=== PATIENT | male | born 1965 | race Caucasian/White ===

== ENCOUNTER → 2021-01-26 00:01 | Outpatient (BNVA) | payer OTHER, SELFPAY | PROVIDERS: Family Provider Nurse Practitioner Family; PCP Nurse Practitioner Family; Visit Provider Nurse Practitioner Family | DX: M77.8 Other enthesopathies, not elsewhere classified (principal) | CPT/HCPCS: 73080 ==

== ENCOUNTER 2023-01-16 10:14 | Emergency (ER) | payer OTHER, SELFPAY ==
[2023-01-16 10:22] VITALS: BP 163/89; PULSE 76; TEMP 36.4; O2SAT 99; BMI 31.1
--- NOTE | 2023-01-16 11:38 | ED_ITS ---
HPI - Back Pain/Injury General: Chief Complaint: Back Pain/Injury Stated Complaint: back pain Time Seen by Provider: 01/16/23 11:02 History of Present Illness: Mr. Whittaker is a 57-year-old gentleman presenting to the emergency department for back injury. He reports onset of symptoms 4 days ago when he had a garage door fall on his lower back. He immediately had pain which is progressively worsened with pain radiation to the left foot. Worse with ambulation and movement. He has tried home medications without significant relief. Does have a history of remote back injury nonoperatively managed. Denies changes in bowel or bladder control. No other specific changes in health, exacerbating, or alleviating factors identified. Onset (ago): day(s) Timing: progressively worsening Severity: severe Similar Symptoms Previously: No Quality: sharp and aching Location: lumbar spine and left lower back Radiation: left leg below the knee Exacerbating factors: movement and walking Relieving factors: none Context: trauma Associated symptoms: Reports no associated symptoms Treatments prior to arrival: other medications (Lidocaine patches) Review of Systems General: Reports: 10 or more systems reviewed and unremarkable except in HPI and below PFSH ED PFSH: Medical History Hypertension Surgical History No significant past surgical history Physical Exam Const: COMMON NORMALS: alert GENERAL APPEARANCE: cooperative and well developed HENMT: COMMON NORMALS: normocephalic and atraumatic HEAD & SCALP: normocephalic and atraumatic Eye: COMMON NORMALS: conjunctivae normal CONJUNCTIVA: Yes conjunctivae normal SCLERA: sclerae normal Neck/C-Spine: COMMON NORMALS: supple GENERAL: Yes trachea midline Resp: COMMON NORMALS: clear to auscultation bilaterally EFFORT & INSPECTION: Yes able to speak in complete sentences AUSCULTATION: clear to auscultation bilaterally Cardio: COMMON NORMALS: regular rate and regular rhythm RATE: regular rate RHYTHM: regular rhythm GI: COMMON NORMALS: Soft to palpation PALPATION: Yes Soft to palpation and No Tenderness to palpation present (GI) Back/Pelvis: OTHER: Mid to lower midline lumbar tenderness palpation and left paraspinal tenderness down to SI joint Extremity: GENERAL: Yes normal exam except as noted and No edema Neuro: COMMON NORMALS: moves all extremities SENSORIUM/ORIENTATION: Yes alert and No Orientation impaired Psych: COMMON NORMALS: mental status grossly normal and Normal thought process present THOUGHT PROCESS: Normal thought process present Course Vital Signs: Vital signs: Vital Signs Temperature 97.5 F L 01/16/23 10:22 Pulse Rate 76 01/16/23 10:22 Respiratory Rate 16 01/16/23 12:30 Blood Pressure 163/89 01/16/23 10:22 Pulse Oximetry 95 01/16/23 12:30 Oxygen Delivery Me thod Room Air 01/16/23 10:22 MDM - Back Pain/Injury Medical Decision Making 57-year-old gentleman presenting with blunt back trauma and continued pain. Patient is neuro intact without evidence of red flag symptoms. He is nontoxic on exam. Given exam and provided clinical history there is no indication for laboratory studies at this time. CTA demonstrates left transverse L3 and L4 fractures which likely explains patient's symptoms. Findings and incidental findings discussed with the patient. Patient improved with muscle relaxer, analgesia. Pain is managed. Most likely etiology of symptoms is transverse process fractures which can be followed in the outpatient setting. I will discharge the patient with analgesia. The results of ED evaluation were discussed with the patient including prescriptions and/or symptomatic cares (if applicable) including appropriate and responsible use, followup plan, and return precautions. The patient verbalized understanding and felt safe for discharge. Medical Records I reviewed the patient's medical records. Labs I reviewed the patient's lab results. Radiology Impressions Lumbar Spine CT 01/16/23 11:49 IMPRESSION: Acute fractures of the left transverse process of L3 and L4. Discharge Plan Discharge Patient Disposition: Home Clinical Impression: Lumbar transverse process fracture, Degenerative disc disease, Lumbar radiculitis Condition: Stable Prescriptions: New oxycodone 5 mg tablet 5 mg PO Q4H PRN (Reason: pain) Qty: 30 0RF No Action losartan 25 mg tablet 25 mg PO DAILY meloxicam 15 mg tablet 15 mg PO DAILY escitalopram oxalate 20 mg tablet 20 mg PO DAILY (DME) Abdominal Binder See Rx Instructions .Route .MEDSUPPLY Qty: 1 0RF Rx Instructions: As directed hydrocodone-acetaminophen 5-325 mg tablet 1 tab PO Q4H PRN (Reason: pain) 5 Days Qty: 30 0RF cyclobenzaprine 10 mg tablet 10 mg PO TID PRN (Reason: muscle spasm) Qty: 30 0RF Discharge Orders: Discharge ED (Routine); Ordered 01/16/23 Ordered By: Jono Bates Referrals: Lucero Sims [Primary Care Provider] - Discharge Diet: Usual diet Discharge Activity: Limit activity as instructed Patient Instructions: Lumbar Radiculopathy (ED), Transverse Process Fracture (ED), Opioid Safety Activity Restrictions/Additional Instructions: Thank you for visiting the emergency department. You were seen and evaluated for back pain. You were found to have L4 and L3 transverse process fractures. This is likely the cause of your pain and mild irritation of the nerve roots explains the referred pain as well. I will message case management for follow-up with orthopedic spine. I will prescribe oxycodone for pain and cyclobenzaprine for muscle relaxation. Use both these medications cautiously and I recommend staggering them as to not experience oversedation or side effects. Please have someone watch you closely while taking these medications. Do not operate any machinery or drive. Common side effect is constipation, you may use [id number]-[id number] stool softeners for this. You may use ndoy-zrf-oqffekt medications such as acetaminophen and ibuprofen for pain however please do not exceed the daily recommended dosage as listed on the packaging and please keep in mind that many namebrand medications contain the same active ingredients. Please avoid these medications if previously instructed to do so by another physician due to other underlying medical condition. Return to the emergency department for uncontrolled pain, any muscle weakness, loss of control of bowel or bladder, or anything else that you are concerned about and feel needs emergency department evaluation. Stand Alone Forms: Work/School Release Coding Level of Care Code ED Rehabilitation Attendant for Bro Araiza
--- NOTE | 2023-01-16 11:49 | CTR_ITS ---
PROCEDURE INFORMATION: Exam: CT Lumbar Spine Without Contrast Exam date and time: 01/16/2023 11:54 AM Age: 57 years old Clinical indication: Injury or trauma; Other: Garage door fell on back; Blunt trauma (contusions or hematomas); Additional info: Mid to low pain, traumatic, L radicular pain, HX fracture TECHNIQUE: Imaging protocol: Computed tomography of the lumbar spine without contrast. Radiation optimization: All CT scans at this facility use at least one of these dose optimization techniques: automated exposure control; mA and/or kV adjustment per patient size (includes targeted exams where dose is matched to clinical indication); or iterative reconstruction. REPORTING DATA: Count of CT and Cardiac NM exams in prior 12 months: This patient has received 0 known CTs and 0 known cardiac nuclear medicine studies in the 12 months prior to the current study. COMPARISON: No relevant prior studies available. RADIATION DOSE METRICS: Total DLP (mGy-cm): 908.1 FINDINGS: Bones/joints: Acute fractures in the left transverse process of L3 and L4. Normal alignment. There is mild spinal stenosis at L3-L4 and L4-L5 contributed by diffuse disc bulge and mild thickening of ligamentum flavum. Diffuse marginal disc osteophyte complex at L5-S1 is contributing to mild bilateral foraminal stenosis. Soft tissues: Unremarkable. CT/CT lumbar spine wo con* [id number] IMPRESSION: Acute fractures of the left transverse process of L3 and L4.
[2023-01-16 12:30] VITALS: RESP 16; O2SAT 95
[2023-01-16] MEDS: acetaminophen 500 mg Tablet 1000 MG PO (12:30)
[2023-01-16] MEDS: dexamethasone 4 mg Tablet 10 MG PO (12:30)
[2023-01-16] MEDS: morphine 4 mg/mL SDV 1 mL IM (12:30)
[2023-01-16] MEDS: cyclobenzaprine 10 mg Tablet PO (12:35)
--- NOTE | 2023-01-17 10:03 | DCPLANNER ---
Addendum entered by Lydia Albert 01/21/23 09:47: This appointment was rescheduled Addendum entered by Lydia Albert 01/17/23 15:20: Patient has a follow up appointment scheduled for December at 10:00 with Cheko Shipman at ortho. Original Note: publishing manager had message to schedule a follow up appointment for patient with ortho. publishing manager sent patients information to the front office staff at ortho. Patients information will be printed and reviewed. Clinic will call patient with appointment information.
== END 2023-01-16 13:26 | disposition home or self-care (01) ==
PROVIDERS: Emergency Provider Emergency Medicine; PCP Nurse Practitioner Family
DX: S32.039A Unspecified fracture of third lumbar vertebra, initial encounter for closed fracture (principal); S32.049A Unspecified fracture of fourth lumbar vertebra, initial encounter for closed fracture; M51.16 Intervertebral disc disorders with radiculopathy, lumbar region; I10 Essential (primary) hypertension; W20.8XXA Other cause of strike by thrown, projected or falling object, initial encounter
CPT/HCPCS: 72131; 96372; 99284; J2270; J8540

== ENCOUNTER → 2023-02-22 10:02 | Outpatient (BNVA) | payer OTHER, SELFPAY | PROVIDERS: PCP Nurse Practitioner Family; Visit Provider Physician Assistant | DX: M54.16 Radiculopathy, lumbar region (principal); S32.009A Unspecified fracture of unspecified lumbar vertebra, initial encounter for closed fracture; X58.XXXA Exposure to other specified factors, initial encounter | CPT/HCPCS: 72100; 99213 ==

== ENCOUNTER 2023-02-22 11:19 | Outpatient (CLI) | payer OTHER, SELFPAY | END 2023-02-22 11:20 | disposition home or self-care (01) | LOC: SPT 11:20 | PROVIDERS: PCP Nurse Practitioner Family; Visit Provider Physician Assistant | DX: Z46.89 Encounter for fitting and adjustment of other specified devices (principal); S32.008D Other fracture of unspecified lumbar vertebra, subsequent encounter for fracture with routine healing; X58.XXXD Exposure to other specified factors, subsequent encounter | CPT/HCPCS: 97760; L0637 ==

== ENCOUNTER → 2023-04-05 09:06 | Outpatient (BNVA) | payer OTHER, SELFPAY | PROVIDERS: PCP Nurse Practitioner Family; Visit Provider Physician Assistant | DX: S32.009D Unspecified fracture of unspecified lumbar vertebra, subsequent encounter for fracture with routine healing (principal); W20.8XXD Other cause of strike by thrown, projected or falling object, subsequent encounter | CPT/HCPCS: 72100; 99213 ==

== ENCOUNTER → 2023-05-17 08:59 | Outpatient (BNVA) | payer OTHER, SELFPAY | PROVIDERS: PCP Nurse Practitioner Family; Visit Provider Physician Assistant | DX: S32.009D Unspecified fracture of unspecified lumbar vertebra, subsequent encounter for fracture with routine healing (principal); W22.8XXD Striking against or struck by other objects, subsequent encounter | CPT/HCPCS: 72100; 99213 ==

== ENCOUNTER → 2024-02-23 15:47 | Outpatient (BNVA) | payer OTHER, SELFPAY | PROVIDERS: PCP Nurse Practitioner Family; Visit Provider Orthopaedic Surgery | DX: M54.9 Dorsalgia, unspecified; M54.41 Lumbago with sciatica, right side; M54.42 Lumbago with sciatica, left side; G89.29 Other chronic pain | CPT/HCPCS: 72100; 99214 ==

== ENCOUNTER 2024-03-20 07:04 | Outpatient (CLI) | payer OTHER, SELFPAY ==
--- NOTE | 2024-03-20 07:15 | MR_ITS ---
WS: [id number] MRI LUMBAR SPINE NONCONTRAST TECHNIQUE: Sagittal T1, T2 and STIR imaging. Axial T1 and T2 imaging. CLINICAL INFORMATION: back pain COMPARISON: None. FINDINGS: Mild lumbar curve. No acute compression. Disc bulging worse at L4-L5 and L5-S1 with tiny annular tear s. L1-L2: Mild annular bulging. Mild facet arthropathy. Tiny LEFT foraminal protrusion with mild LEFT fo raminal narrowing. RIGHT foramen is patent. Mild facet arthropathy. L2-L3: Mild annular bulging. Moderate facet arthropathy. Mild LEFT and no significant RIGHT foraminal narrowing. L3-L4: Mild annular bulging. Moderate facet arthropathy. Mild RIGHT greater than LEFT foraminal narro wing. L4-L5: Mild annular bulging. Shallow central protrusion with a small annular fissure and slight impin gement of the traversing L5 nerve roots bilaterally. Mild central canal stenosis. Mild RIGHT greater than LEFT foraminal narrowing. Moderate facet arthropathy. L5-S1: Mild disc bulging with slight contact of the RIGHT S1 nerve root. Moderate facet arthropathy. Small annular tear. Mild RIGHT and no significant LEFT foraminal narrowing. Visualized pelvic bony structures: Normal. Paravertebral soft tissues: Normal. Small bilateral facet effusions of 4-5 and L5-S1 moderate facet arthropathy likely inflammatory. MR/MR lumbar spine wo con* [id number] IMPRESSION: 1. Mild lumbar curve. No acute compression. Disc bulging worse at L4-L5 and L5 -S1 with tiny annular tears. 2. Shallow central protrusion with annular tear and mild central canal stenosi s. Slight impingement traversing L5 nerve roots. Mild RIGHT greater than LEFT f oraminal narrowing at this level. 3. Shallow RIGHT paracentral protrusion L5-S1 with a small annular tear and sl ight contact of the RIGHT S1 nerve root. Mild RIGHT foraminal narrowing at this level. 4. Mild LEFT L2-3 and bilateral L3-4 foraminal narrowing.
== END 2024-03-20 07:05 | disposition home or self-care (01) ==
LOC: RAD 07:04
PROVIDERS: PCP Nurse Practitioner Family; Visit Provider Orthopaedic Surgery
DX: M51.36 Other intervertebral disc degeneration, lumbar region (principal); M51.37 Other intervertebral disc degeneration, lumbosacral region
CPT/HCPCS: 72148